=== PATIENT | male | born 1965 | race Caucasian/White ===

== ENCOUNTER → 2017-05-24 | Outpatient (CLI) | payer BC ==
[~2017-05-24] MED LIST: ALTACE2.5 MG PO; AMOXICILLIN 50500 MG PO; ASPIRIN 32325 MG/TAB PO; LEVAQUIN 5500 MG/TAB PO; PHENERGAN W/CO120 ML PO
== END ==
LOC: COL.RAD 05-21 12:30
DX: M23.222 Derangement of posterior horn of medial meniscus due to old tear or injury, left knee (principal); M71.22 Synovial cyst of popliteal space [Baker], left knee; Z95.0 Presence of cardiac pacemaker